=== PATIENT | male | born 1975 | race Caucasian/White ===

== ENCOUNTER 2017-02-05 04:11 | Emergency (ER) | payer OTHER ==
[2017-02-05] MEDS ORDERED: LIDOCAINE 2% URO-JET 5 ML SYRINGE UR ONE (04:31)
[2017-02-05] MEDS ORDERED: DEXAMETHASONE 10 MG/ML VIAL PO STA (04:34)
[2017-02-05] MEDS ORDERED: CHERRY SYRUP 10 ML UDC PO ONE (04:36)
[2017-02-05] MEDS ORDERED: DEXAMETHASONE 10 MG/ML VIAL ONE (04:36)
== END 2017-02-05 06:11 | disposition home or self-care (01) ==
DX: R33.9 Retention of urine, unspecified (principal); M54.31 Sciatica, right side; M54.9 Dorsalgia, unspecified; G89.29 Other chronic pain
CPT/HCPCS: 51702; 81003; 99283; 99284; A9270

== ENCOUNTER 2017-02-07 08:53 | Outpatient (CLI) | payer OTHER | END 2017-02-07 08:54 | disposition home or self-care (01) | DX: M51.26 Other intervertebral disc displacement, lumbar region (principal); M51.27 Other intervertebral disc displacement, lumbosacral region; M51.36 Other intervertebral disc degeneration, lumbar region; M51.37 Other intervertebral disc degeneration, lumbosacral region ==

== ENCOUNTER 2017-02-18 10:58 | Outpatient (CLI) | payer OTHER | END 2017-02-18 10:59 | disposition home or self-care (01) | DX: Z01.812 Encounter for preprocedural laboratory examination (principal); M53.80 Other specified dorsopathies, site unspecified ==

== ENCOUNTER 2021-05-08 11:07 | Outpatient (CLI) | payer OTHER ==
--- NOTE | 2021-05-08 12:38 | XRAY Report ---
PROCEDURE: Knee 3 View LT INDICATIONS: SPRAIN OF COLLATERAL LIGAMENT OF L KNEE TECHNIQUE: 3 views of the left knee(s) were acquired. COMPARISON: None. FINDINGS: Bones: No fractures or dislocations. No suspicious bony lesions. Soft tissues: There is a small suprapatellar joint effusion. No suspicious soft tissue calcification s. IMPRESSION: 1. No fracture or dislocation. 2. Small suprapatellar joint effusion suggests possible internal derangement. Reviewed by: Jun Hodge on 05/08/2021 12:37 PM PDT Approved by: Jun Hodge on 05/08/2021 12:37 PM PDT Station ID: [id number]
== END 2021-05-08 23:59 | disposition home or self-care (01) ==
LOC: DI.N 11:07
PROVIDERS: ATTEND Nurse Practitioner
DX: M25.462 Effusion, left knee (principal)

== ENCOUNTER 2022-07-25 14:58 | Outpatient (CLI) | payer BC ==
[2022-07-25 15:12] LABS: BASOPHILS # (AUTO) 0.1 10^3/uL (0.0-0.1); BASOPHILS % (AUTO) 1.4 %; EOSINOPHILS # (AUTO) 0.2 10^3/uL (0.0-0.7); EOSINOPHILS % (AUTO) 2.8 %; HCT - HEMATOCRIT 45.5 % (42.0-52.0); HGB - HEMOGLOBIN 15.5 g/dL (14.0-18.0); LYMPHOCYTES # (AUTO) 2.3 10^3/uL (1.5-3.5); LYMPHOCYTES % (AUTO) 30.7 %; MEAN CORPUSCULAR HEMOGLOBIN 29.3 pg (27.0-31.0); MEAN CORPUSCULAR HGB CONC 34.1 g/dL (32.0-36.0); MEAN PLATELET VOLUME 9.2 fL (7.4-11.4); MONOCYTES # (AUTO) 0.3 10^3/uL (0.0-1.0); MONOCYTES % (AUTO) 4.6 %; NEUTROPHILS # (AUTO) 4.5 10^3/uL (1.5-6.6); NEUTROPHILS % (AUTO) 60.4 %; PLT - PLATELET COUNT 273 10^3/uL (130-450); RED BLOOD COUNT 5.29 10^6/uL (4.70-6.10); RED CELL DISTRIBUTION WIDTH 12.9 % (12.0-15.0); WHITE BLOOD COUNT 7.4 x10^3/uL (4.8-10.8)
[2022-07-25 15:31] LABS: ALBUMIN 4.5 g/dL (3.2-5.5); ALBUMIN/GLOBULIN RATIO 1.6 (1.0-2.2); ALKALINE PHOSPHATASE 74 IU/L (42-121); ALT ALANINE AMINOTRANSFERASE 50 IU/L (10-60); AST ASPARTATE AMINOTRANSFERASE 28 IU/L (10-42); BILIRUBIN,TOTAL 0.9 mg/dL (0.2-1.0); BUN - BLOOD UREA NITROGEN 18 mg/dL (6-20); CALCIUM 9.7 mg/dL (8.5-10.3); CARBON DIOXIDE - CO2 26 mmol/L (21-32); CHLORIDE 103 mmol/L (101-111); CHOL/HDL RATIO 5.7 (<5.0); CHOLESTEROL 233 mg/dL; CREATININE 0.8 mg/dL (0.6-1.2); GFR - MDRD 105 (>89); GLUCOSE 93 mg/dL (70-100); HDL CHOLESTEROL 41 mg/dL; LDL CHOLESTEROL,CALCULATED 154 mg/dL; LDL/HDL RATIO 3.8 (<3.6); POTASSIUM 4.2 mmol/L (3.5-5.0); SODIUM 137 mmol/L (135-145); TOTAL PROTEIN 7.3 g/dL (6.7-8.2); TRIGLYCERIDES 191 mg/dL; VLDL CHOLESTEROL 38 mg/dL
[2022-07-25 15:41] LABS: THYROID STIMULATING HORMONE 1.88 uIU/mL (0.34-5.60)
== END 2022-07-25 14:59 | disposition home or self-care (01) ==
LOC: LAB 14:58
DX: Z00.00 Encounter for general adult medical examination without abnormal findings (principal)
CPT/HCPCS: 36415; 80053; 80061; 83721; 84443; 85025

== ENCOUNTER 2023-12-21 10:46 | Outpatient (CLI) | payer BC ==
[2023-12-21 19:34] LABS: BASOPHILS # (AUTO) 0.1 10^3/uL (0.0-0.1); BASOPHILS % (AUTO) 1.6 %; EOSINOPHILS # (AUTO) 0.2 10^3/uL (0.0-0.7); EOSINOPHILS % (AUTO) 3.1 %; HCT - HEMATOCRIT 45.5 % (42.0-52.0); HGB - HEMOGLOBIN 14.7 g/dL (14.0-18.0); LYMPHOCYTES # (AUTO) 2.2 10^3/uL (1.5-3.5); LYMPHOCYTES % (AUTO) 29.4 %; MEAN CORPUSCULAR HEMOGLOBIN 29.1 pg (27.0-31.0); MEAN CORPUSCULAR HGB CONC 32.3 g/dL (32.0-36.0); MEAN CORPUSCULAR VOLUME 89.9 fL (80.0-94.0); MEAN PLATELET VOLUME 9.6 fL (7.4-11.4); MONOCYTES # (AUTO) 0.4 10^3/uL (0.0-1.0); MONOCYTES % (AUTO) 4.7 %; NEUTROPHILS # (AUTO) 4.6 10^3/uL (1.5-6.6); NEUTROPHILS % (AUTO) 61.1 %; PLT - PLATELET COUNT 266 10^3/uL (130-450); RED BLOOD COUNT 5.06 10^6/uL (4.70-6.10); RED CELL DISTRIBUTION WIDTH 13.2 % (12.0-15.0); WHITE BLOOD COUNT 7.5 x10^3/uL (4.8-10.8)
[2023-12-21 19:39] LABS: ALBUMIN 4.5 g/dL (3.2-5.5); ALBUMIN/GLOBULIN RATIO 1.8 (1.0-2.2); ALKALINE PHOSPHATASE 91 IU/L (42-121); ALT ALANINE AMINOTRANSFERASE 45 IU/L (10-60); AST ASPARTATE AMINOTRANSFERASE 23 IU/L (10-42); BILIRUBIN,TOTAL 0.8 mg/dL (0.2-1.0); BUN - BLOOD UREA NITROGEN 17 mg/dL (6-20); CALCIUM 9.8 mg/dL (8.5-10.3); CARBON DIOXIDE - CO2 29 mmol/L (21-32); CHLORIDE 107 mmol/L (101-111); CHOL/HDL RATIO 4.2 (<5.0); CHOLESTEROL 140 mg/dL; CREATININE 0.8 mg/dL (0.6-1.3); GFR - MDRD 104 (>89); GLUCOSE 96 mg/dL (74-104); HDL CHOLESTEROL 33 mg/dL; LDL CHOLESTEROL,CALCULATED 82 mg/dL; LDL/HDL RATIO 2.5 (<3.6); POTASSIUM 4.6 mmol/L (3.5-4.5); SODIUM 140 mmol/L (135-145); TRIGLYCERIDES 125 mg/dL (48-352); VLDL CHOLESTEROL 25 mg/dL
[2023-12-21 21:30] LABS: ESTIMATED AVERAGE GLUCOSE 114 mg/dL (70-100); HEMOGLOBIN A1c% 5.6 % (4.27-6.07)
== END 2023-12-21 10:47 | disposition home or self-care (01) ==
LOC: LAB.N 10:46
PROVIDERS: ATTEND Family Medicine
DX: I10 Essential (primary) hypertension (principal); E78.2 Mixed hyperlipidemia; R73.9 Hyperglycemia, unspecified
CPT/HCPCS: 36415; 80053; 80061; 83036; 83721; 85025